=== PATIENT | female | born 1990 | race American Indian/Alaskan Native ===

== ENCOUNTER 2018-08-23 16:11 | Emergency (ER) | payer MEDICAID ==
--- NOTE | 2018-08-23 15:54 | Emergency Department Report ---
Blank Doc - Documentation Documentation: 27 y/o female c/o tooth pain that started 2-3 day.
[2018-08-23] MEDS ORDERED: LACTATED RINGERS 500 ML IV ONE (16:13)
[2018-08-23 16:54] VITALS: BP 127/77
[2018-08-23 17:16] LABS: Bilirubin,Urine NEG (Negative); Blood,Urine NEG (Negative); Color,Urine Yellow (Yellow); Mucus,Urine FEW /HPF
[2018-08-23] MEDS ORDERED: TYLENOL PO PRN (17:32)
--- NOTE | 2018-08-23 19:19 | Emergency Department Report ---
ED ENT HPI - General Chief complaint: Dental/Oral Stated complaint: RT SIDE TOOTHACHE/PAIN Time Seen by Provider: 08/23/18 19:14 Source: patient Mode of arrival: Ambulatory Limitations: No Limitations - History of Present Illness Initial comments: 27 y/o female comes in for right upper tooth pain for 2 days. Patient denies any fever or chills. Patient was cleared from labor and delivery. MD complaint: tooth pain -: days(s) (2) Severity: severe Severity scale (0 -10): 8 Quality: aching Consistency: constant Improves with: none Worsens with: eating Associated Symptoms: toothache. denies: fever, cough - Related Data Previous Rx's Medication Instructions Recorded Last Taken Type Acetaminophen/Codeine 1 tab PO Q6H PRN #15 tab 03/12/14 Unknown Rx [Acetaminophen-Codeine #3 TAB] Acetaminophen 975 mg PO Q4-6H #24 capsule 08/23/18 Unknown Rx Amoxicillin [Trimox CAP] 500 mg PO Q8H #30 capsule 08/23/18 Unknown Rx Allergies Allergy/AdvReac Type Severity Reaction Status Date / Time No Known Allergies Allergy Verified 08/23/18 16:16 ED Dental HPI - General Chief complaint: Dental/Oral Stated complaint: RT SIDE TOOTHACHE/PAIN Time Seen by Provider: 08/23/18 19:14 Source: patient Mode of arrival: Ambulatory Limitations: No Limitations - Related Data Previous Rx's Medication Instructions Recorded Last Taken Type Acetaminophen/Codeine 1 tab PO Q6H PRN #15 tab 03/12/14 Unknown Rx [Acetaminophen-Codeine #3 TAB] Acetaminophen 975 mg PO Q4-6H #24 capsule 08/23/18 Unknown Rx Amoxicillin [Trimox CAP] 500 mg PO Q8H #30 capsule 08/23/18 Unknown Rx Allergies Allergy/AdvReac Type Severity Reaction Status Date / Time No Known Allergies Allergy Verified 08/23/18 16:16 ED Review of Systems ROS: Stated complaint: RT SIDE TOOTHACHE/PAIN Other details as noted in HPI ED Past Medical Hx - Surgical History Additional Surgical History: . keloids removed - Social History Smoking Status: Never Smoker Substance Use Type: None - Medications Home Medications: Home Medications Medication Instructions Recorded Confirmed Last Taken Type Acetaminophen/Codeine 1 tab PO Q6H PRN #15 tab 03/12/14 Unknown Rx [Acetaminophen-Codeine #3 TAB] Acetaminophen 975 mg PO Q4-6H #24 capsule 08/23/18 Unknown Rx Amoxicillin [Trimox CAP] 500 mg PO Q8H #30 capsule 08/23/18 Unknown Rx ED Physical Exam - General Limitations: No Limitations General appearance: alert, in no apparent distress - Head Head exam: Present: atraumatic, normocephalic - Eye Eye exam: Present: normal appearance - Expanded ENT Exam Expanded Teeth exam: Present: dental tenderness # (12), gingival enlargement - Neck Neck exam: Present: normal inspection - Respiratory Respiratory exam: Present: normal lung sounds bilaterally. Absent: respiratory distress - Cardiovascular Cardiovascular Exam: Present: regular rate, normal rhythm. Absent: systolic murmur, diastolic murmur, rubs, gallop - Extremities Exam Extremities exam: Present: full ROM - Back Exam Back exam: Present: normal inspection, full ROM - Neurological Exam Neurological exam: Present: alert, oriented X3 - Psychiatric Psychiatric exam: Present: normal affect, normal mood - Skin Skin exam: Present: warm, dry, intact, normal color. Absent: rash ED Course Vital Signs 08/23/18 08/23/18 08/23/18 15:41 16:51 16:53 Temperature 98.4 F Pulse Rate 88 79 82 Respiratory 20 Rate Blood Pressure 116/59 127/77 Blood Pressure [Right] O2 Sat by Pulse 99 100 Oximetry 08/23/18 08/23/18 08/23/18 16:56 17:01 17:02 Temperature 97.7 F Pulse Rate 77 87 85 Respiratory 20 Rate Blood Pressure Blood Pressure 127/77 [Right] O2 Sat by Pulse 100 100 100 Oximetry 08/23/18 08/23/18 08/23/18 17:06 17:11 17:16 Temperature Pulse Rate 83 100 H 92 H Respiratory Rate Blood Pressure Blood Pressure [Right] O2 Sat by Pulse 100 100 100 Oximetry 08/23/18 08/23/18 08/23/18 17:21 17:26 17:31 Temperature Pulse Rate 89 91 H 99 H Respiratory Rate Blood Pressure Blood Pressure [Right] O2 Sat by Pulse 100 100 100 Oximetry 08/23/18 08/23/18 08/23/18 17:40 17:45 18:18 Temperature Pulse Rate 100 H 78 91 H Respiratory Rate Blood Pressure Blood Pressure [Right] O2 Sat by Pulse 99 100 83 L Oximetry ED Medical Decision Making - Medical Decision Making 27-year-old -Chinese female that was 37 weeks comes in for right upper quadrant today. Patient also reported she was having abdominal contractions and went to labor and delivery to be clear. Patient will be placed on antibiotics and Tylenol for pain management and possible dental abscess. Discussed the patient to follow up with her [employer] provider and dentist. Patient verbalized understanding Critical care attestation.: If time is entered above; I have spent that time in minutes in the direct care of this critically ill patient, excluding procedure time. ED Disposition Clinical Impression: Pain, dental Disposition: DC-01 TO HOME OR SELFCARE Is pt being admited?: No Condition: Stable Instructions: Labor and Delivery General Instructions, Labor/ Labor Instructions, Labor (DC), Dental Abscess (GEN), Vaginal Delivery (DC) Additional Instructions: Take medications as prescribed and follow up with a dentist. Prescriptions: Acetaminophen 975 mg PO Q4-6H #24 capsule Amoxicillin [Trimox CAP] 500 mg PO Q8H #30 capsule Referrals: RK ORTIZ MD [Primary Care Provider] - 7 Days [facility] [Outside] - 3-5 Days [facility] [Outside] - 3-5 Days Forms: [facility] Discharge Summary
== END 2018-08-23 19:25 | disposition home or self-care (01) ==
LOC: TRG 16:11 → ED 16:11 → TRG 16:13 → EDSTATUS 19:12 → ED 19:25
DX: O99.613 Diseases of the digestive system complicating pregnancy, third trimester (principal); K08.89 Other specified disorders of teeth and supporting structures; Z3A.34 34 weeks gestation of pregnancy
CPT/HCPCS: 59025; 81001; 99283; J7120; 96360; 96361

== ENCOUNTER 2018-09-18 20:48 | Inpatient (IN) | payer MEDICAID ==
[2018-09-18] MEDS ORDERED: LACTATED RINGERS 1,000 ML IV ONE (22:28)
[2018-09-18] MEDS ORDERED: LACTATED RINGERS 1,000 ML IV SCH (23:45)
[2018-09-18] MEDS ORDERED: PITOCin/NS 20 UNIT/1000ML DRIP 20 UNITS/1,000 ML BAG IV SCH (23:45)
[2018-09-18] MEDS ORDERED: REGLAN IV ONE (23:53)
[2018-09-18] MEDS ORDERED: PEPCID IV ONE (23:53)
[2018-09-18] MEDS ORDERED: BICITRA PO ONE (23:53)
[2018-09-18] MEDS ORDERED: ANCEF/STERILE WATER 2 GM/20 ML 2 GM/20 ML SYRINGE IV NR (23:55)
[2018-09-19 00:29] LABS: Basophils % (Auto) 0.4 % (0.0-1.8); Eosinophils # (Auto) 0.1 K/mm3 (0.0-0.4); Eosinophils % (Auto) 1.2 % (0.0-4.3); Hematocrit 30.2 % (30.3-42.9); Hemoglobin 10.3 gm/dl (10.1-14.3); Lymphocytes # (Auto) 2.1 K/mm3 (1.2-5.4); Mean Corpuscular HGB Conc 34 % (30-34); Mean Corpuscular Volume 86 fl (79-97); Monocytes # (Auto) 0.8 K/mm3 (0.0-0.8); Monocytes % (Auto) 7.9 % (0.0-7.3); Platelet Count 220 K/mm3 (140-440); Red Blood Count 3.52 M/mm3 (3.65-5.03); Red Cell Distribution Width 14.2 % (13.2-15.2)
[2018-09-19] MEDS ORDERED: ZOFRAN ONE ×2 (00:55→03:38)
--- NOTE | 2018-09-19 01:15 | History and Physical Report ---
History of Present Illness Date of examination: 09/19/18 Date of admission: 09/19/18 00:16 Chief complaint: Labor History of present illness: Pt is a 28yo BF EDC 10/01/18; EGA 38 2/7 weeks presents to L&D complaining of RUC's. She received care at [facility] and scheduled for a Repeat C Section 09/26/18. However records are not available and GBS is unknown. She is currently in labor, so will proceed with a Repeat C Section now. Past History Past Medical History: no pertinent history Past Surgical History: section Social history: no significant social history, single - Obstetrical History Expected Date of Delivery: 10/01/18 Actual Gestation: 38 Week(s) 4 Day(s) : 3 Medications and Allergies Allergies Allergy/AdvReac Type Severity Reaction Status Date / Time No Known Allergies Allergy Verified 09/18/18 22:20 Home Medications Medication Instructions Recorded Confirmed Last Taken Type valACYclovir [Valtrex] 1 tab PO DAILY 09/18/18 09/18/18 09/18/18 History Active Meds: Active Medications Oxytocin/Sodium Chloride (Pitocin/Ns 20 Unit/1000ml Drip) 20 units in 1,000 mls @ 0 mls/hr IV TITR MELBA Lactated Ringer's (Lactated Ringers) 1,000 mls @ 2,250 mls/hr IV PREOP MELBA Stop: 09/20/18 00:12 Review of Systems All systems: negative - Vital Signs Vital signs: Vital Signs Temp 98.0 F 09/18/18 22:12 Temp Pulse Resp BP Pulse Ox 97.8 F 70 20 132/64 09/19/18 00:36 09/19/18 00:43 09/19/18 00:36 09/19/18 00:43 - Physical Exam Breasts: Positive: deferred Cardiovascular: Regular rate Lungs: Positive: Clear to auscultation Abdomen: Positive: normal appearance Genitourinary (Female): Positive: normal external genitalia Vagina: Positive: normal moisture Uterus: Positive: enlarged Extremities: Positive: normal - Obstetrical FHR: category 1 Uterine Contraction Monitor Mode: External Results Result Diagrams: 09/19/18 14:13 Abnormal lab results 09/18/18 Range/Units 23:50 RBC 3.52 L (3.65-5.03) M/mm3 Hct 30.2 L (30.3-42.9) % [place] % (Auto) 7.9 H (0.0-7.3) % All other labs normal. Assessment and Plan - Patient Problems (1) 38 weeks gestation of Onset Date: 09/19/18 Current Visit: Yes Status: Resolved Plan to address problem: A: IUP @ 38 2/7 weeks in labor Previous C Section GBS unknown P: Admit to L&D for Repeat C Section (2) Previous delivery affecting Onset Date: 09/19/18 Current Visit: Yes Status: Resolved
[2018-09-19] MEDS ORDERED: DILAUDID ONE ×2 (01:51→03:40)
[2018-09-19] MEDS ORDERED: TORADOL ONE ×2 (01:52→03:38)
[2018-09-19] MEDS ORDERED: SUBLIMAZE ONE ×2 (01:52→03:01)
[2018-09-19] MEDS ORDERED: BENADRYL ONE ×2 (01:52→03:38)
[2018-09-19] MEDS ORDERED: TYLENOL PO PRN (02:07)
[2018-09-19] MEDS ORDERED: LANSINOH TP PRN (02:07)
[2018-09-19] MEDS ORDERED: NARCAN 0.4 MG/1 ML IV PRN ×2 (02:07→02:18)
[2018-09-19] MEDS ORDERED: TUCKS PAD TP PRN (02:07)
[2018-09-19] MEDS ORDERED: SENOKOT PO PRN (02:07)
[2018-09-19] MEDS ORDERED: MYLICON PO PRN (02:07)
[2018-09-19] MEDS ORDERED: ZOFRAN IV PRN ×2 (02:07→02:18)
[2018-09-19] MEDS ORDERED: TORADOL IV PRN (02:07)
--- NOTE | 2018-09-19 02:15 | Operative Report ---
Operative Report Operative Report: Date of procedure: 09/19/2018 Pre-operative diagnosis: 1. Intrauterine at 38-2/7 weeks in labor 2. Previous Post-operative diagnosis: Same Procedure name(s): Repeat low transverse section Surgeon: Joseph Gomez MD Sheet Sorter: None Anesthesia: Spinal anesthesia EBL: 900 mls Findings: A 3270 g female infant Apgars 8 at 1 minute and 8 at 5 minutes. Clear amniotic fluid. Normal uterus. Normal tubes and ovaries bilaterally. Procedure: After the patient was prepped and draped in usual sterile fashion, and after satisfactory level of epidural anesthesia was obtained, the skin knife was used to make a transverse skin incision through the previous skin scar. The incision was excised down to layer of the fascia, which was nicked in the midline and extended laterally using the Bovie cautery. The rectus muscles were dissected off the rectus fascia both superiorly and inferiorly. The rectus bellies in the midline, and the peritoneum was entered under direct visualization. The peritoneal incision was extended superiorly and inferiorly. A bladder flap was created and the bladder blade was then placed. The uterus was scored in a curvilinear linear fashion, entered in the midline revealing clear amniotic fluid. The 's head was delivered onto the surgical field, and the oropharynx and nasopharynx were bulb suctioned. The rest of the infant's body was delivered, cord was doubly clamped and cut and the infant was handed to the waiting respiratory team. Cord blood was then obtained. The placenta was manually removed from the uterus, and the uterus removed from its normal anatomical position. After gentle uterine lavage, the incision was inspected and found to be without extensions. It was then closed in 2 layers using 0 Vicryl suture in a running interlocking fashion, the second layer imbricating the first. After good hemostasis was achieved, copious amounts or irrigation was performed, and the gutters were suctioned free of blood and blood clots. The Tisseel sealant was sprayed across the uterine incision. The uterus was then returned to its normal anatomical position, and after excellent hemostasis assured, the peritoneum was re-approximated using 3-0 Vicryl suture in a running interlocking fashion, and then the rectus muscles were re- approximated using 3-0 Vicryl suture in a [id number] configuration. The fascia was then re-approximated using 0 Vicryl suture in running interlocking fashion. The subcutaneous layer was made hemostatic using Bovie cautery, the Tisseel sealant was sprayed across the fascial incision and the skin edges re- approximated using 4-0 Vicryl suture in a sub-cuticular fashion. Patient tolerated the procedure well was transported to recovery in stable condition.
--- NOTE | 2018-09-19 02:17 | Anesthesia Consultation ---
Anesthesia Consult and Med Hx Date of service: 09/19/18 - Airway Anesthetic Teeth Evaluation: Good ROM Head & Neck: Adequate Mental/Hyoid Distance: Adequate Mallampati Class: Class II Intubation Access Assessment: Good - Pulmonary Exam CTA: Yes - Cardiac Exam Cardiac Exam: RRR - Pre-Operative Health Status ASA Pre-Surgery Classification: ASA2 Proposed Anesthetic Plan: Epidural - Pulmonary Hx Asthma: No COPD: No Hx Pneumonia: No - Cardiovascular System Hx Hypertension: No - Central Nervous System Hx Seizures: No Hx Psychiatric Problems: No - Endocrine Hx Renal Disease: No Hx End Stage Renal Disease: No Hx Hypothyroidism: No Hx Hyperthyroidism: No - Hematic Hx Anemia: No Hx Sickle Cell Disease: No - Other Systems Hx Alcohol Use: No
--- NOTE | 2018-09-19 02:17 | Anesthesia Day of Surgery ---
Anesthesia Day of Surgery - Day of Surgery Patient Examined: Yes Patient H&P Reviewed: Yes Patient is NPO: Yes
[2018-09-19] MEDS ORDERED: DILAUDID IV PRN (02:18)
[2018-09-19] MEDS ORDERED: PHENERGAN PR PRN (02:18)
[2018-09-19] MEDS ORDERED: PHENERGAN PO PRN (02:18)
--- NOTE | 2018-09-19 02:18 | Post Anesthesia Evaluation ---
- Post Anesthesia Evaluation Patient Participated: Yes Airway Patent: Yes Stable Respiratory Function: Yes Nausea/Vomiting: No Temp > 96.8F: Yes Pain Manageable: Yes Adequeate Hydration: Yes Anesthesia Complications: No Block Receding Appropriately: Yes
[2018-09-19] MEDS: MORPHINE IV PRN ×2 (02:53→03:09)
[2018-09-19] MEDS ORDERED: PITOCin/NS 20 UNIT/1000ML DRIP 20 UNITS/1,000 ML BAG IV SCH (03:00)
[2018-09-19] MEDS ORDERED: D5LR 1,000 ML IV SCH (03:00)
[2018-09-19] MEDS ORDERED: SODIUM CHLORIDE FLUSH SYRINGE 10 ML IV PRN ×2 (03:00)
[2018-09-19] MEDS ORDERED: QUELICIN ONE (03:38)
[2018-09-19] MEDS ORDERED: XYLOCAINE MPF 2% ONE (03:38)
[2018-09-19] MEDS ORDERED: DIPRIVAN 10 MG/ML IV ONE (03:39)
[2018-09-19] MEDS: PERCOCET 5/325 PO PRN ×3 (08:02→20:40)
[2018-09-19] MEDS: ANCEF/NS 1 GM/50 ML 1 GM/50 ML BAG IV SCH ×2 (08:03→15:53)
[2018-09-19] MEDS: PRENATAL VITAMIN PO SCH (10:21)
[2018-09-19] MEDS: FEOSOL PO SCH (10:21)
[2018-09-19 14:32] LABS: Hematocrit 26.1 % (30.3-42.9); Hemoglobin 8.7 gm/dl (10.1-14.3)
[2018-09-19] MEDS: IBUPROFEN PO PRN ×2 (15:14→21:40)
[2018-09-19] MEDS: MILK OF MAGNESIA PO PRN (15:56)
[2018-09-20] MEDS ORDERED: M-M-R II VACCINE SUB-Q ONE (02:09)
[2018-09-20] MEDS: PERCOCET 5/325 PO PRN ×3 (03:46→22:57)
[2018-09-20] MEDS: IBUPROFEN PO PRN ×5 (04:45→22:57)
[2018-09-20] MEDS ORDERED: BOOSTRIX IM ONE (06:00)
[2018-09-20] MEDS: PRENATAL VITAMIN PO SCH (10:47)
[2018-09-20] MEDS: FEOSOL PO SCH (10:47)
--- NOTE | 2018-09-20 11:45 | Progress Note ---
Assessment and Plan - Patient Problems (1) 38 weeks gestation of Onset Date: 09/19/18 Current Visit: Yes Status: Resolved (2) Previous delivery affecting Onset Date: 09/19/18 Current Visit: Yes Status: Resolved (3) Status post Onset Date: 09/20/18 Current Visit: Yes Status: Resolved Plan to address problem: A: S/P C Section - POD #1 Doing well Asymptomatic anemia - stable P: Continue RPOC Anticipate discharge in 24-48hrs Subjective - Subjective Date of service: 09/20/18 Principal diagnosis: s/p C Section - POD #1 Interval history: Pt is feeling well without complaints. Bleeding improved. Patient reports: appetite normal, voiding normally, pain well controlled, flatus, ambulating normally, no dizzy ambulation, no nauseated [place]: doing well, bottle feeding Objective - Vital Signs Latest vital signs: Vital Signs Temp Pulse Resp BP BP Pulse Ox 09/20/18 07:39 97.6 F 75 18 119/65 100 09/20/18 04:45 18 09/19/18 23:54 97.5 F L 86 20 119/63 99 09/19/18 21:40 18 09/19/18 20:57 98.0 F 84 20 117/71 100 09/19/18 20:40 18 09/19/18 16:24 98.2 F 82 18 120/59 100 Intake and Output 09/19/18 09/20/18 09/20/18 22:59 06:59 14:59 Output Total 200 Balance -200 Output: Urine 200 Void 200 Other: Total, Output Amount 200 # Voids Void 1 - Exam Breasts: Present: deferred Abdomen: Present: normal appearance, soft Uterus: Present: normal, firm, fundal height below umbilicus Extremities: Present: normal Incision: Present: normal, dry, intact - Labs Labs: Abnormal lab results 09/19/18 Range/Units 14:13 Hgb 8.7 L (10.1-14.3) gm/dl Hct 26.1 L (30.3-42.9) % Laboratory Tests 09/18/18 09/18/18 09/19/18 23:50 23:50 14:13 WBC 9.9 RBC 3.52 L Hgb 10.3 8.7 L Hct 30.2 L 26.1 L MCV 86 MCH 29 MCHC 34 RDW 14.2 Plt Count 220 Lymph % (Auto) 21.0 [place] % (Auto) 7.9 H Eos % (Auto) 1.2 Baso % (Auto) 0.4 Lymph # 2.1 [place] # 0.8 Eos # 0.1 Baso # 0.0 Seg Neutrophils % 69.5 Seg Neutrophils # 6.9 Blood Type O POSITIVE Antibody Screen TNR [place] Antibody Screen Negative
[2018-09-20] MEDS: NORCO 5/325 PO PRN ×2 (16:26→16:31)
[2018-09-20] MEDS: MILK OF MAGNESIA PO PRN (22:57)
[2018-09-21] MEDS: PERCOCET 5/325 PO PRN ×2 (05:17→11:10)
[2018-09-21] MEDS: IBUPROFEN PO PRN ×2 (05:17→11:10)
[2018-09-21] MEDS: PRENATAL VITAMIN PO SCH (10:13)
[2018-09-21] MEDS: FEOSOL PO SCH (10:13)
--- NOTE | 2018-09-21 11:35 | Progress Note ---
Assessment and Plan - Patient Problems (1) 38 weeks gestation of Onset Date: 09/19/18 Current Visit: Yes Status: Resolved (2) Previous delivery affecting Onset Date: 09/19/18 Current Visit: Yes Status: Resolved (3) Status post Onset Date: 09/20/18 Current Visit: Yes Status: Resolved Plan to address problem: A: S/P C Section - POD #2 Doing well Asymptomatic anemia - stable P: May go home today. Subjective - Subjective Date of service: 09/21/18 Principal diagnosis: s/p C Section - POD #2 Interval history: Pt is feeling well without complaints. She is tolerating a reg diet without nausea or vomiting, ambulating and voiding without difficulty. She requests to go home today. Patient reports: appetite normal, voiding normally, pain well controlled, flatus, ambulating normally, no dizzy ambulation, no nauseated [place]: doing well, bottle feeding Objective - Vital Signs Latest vital signs: Vital Signs Temp Pulse Resp BP Pulse Ox 09/21/18 08:11 97.7 F 93 H 20 117/61 100 09/21/18 01:12 98.2 F 86 20 114/53 100 09/20/18 17:44 98.8 F 92 H 18 107/58 100 Intake and Output 09/20/18 09/21/18 09/21/18 22:59 06:59 14:59 Intake Total 1080 Balance 1080 Intake: Oral 360 Intake, Free Water 720 Other: Total, Intake Amount 360 # Voids Void 3 - Exam Breasts: Present: deferred Abdomen: Present: normal appearance, soft Uterus: Present: normal, firm, fundal height below umbilicus Extremities: Present: normal Incision: Present: normal, dry, intact
--- NOTE | 2018-09-21 11:37 | Discharge Summary ---
Providers - Providers Date of Admission: 09/19/18 00:16 Date of discharge: 09/21/18 Attending physician: RK ORTIZ Primary care physician: RK ORTIZ Hospitalization Reason for admission: active labor, IUP at term, other (Previous C Section) Delivery: Procedure: section, repeat low transverse Laceration: none Incision: normal Other procedures: none complications: none Discharge diagnosis: IUP at term delivered [place] baby: female Hospital course: Pt is a 28yo BF EDC 10/01/18; EGA 38 2/7 weeks who presented to L&D complaining of RUC's. She received care at [facility] and was scheduled for a Repeat C Section 09/26/18. However she was in labor, so an uncomplicated Repeat C Section was performed. She tolerated the procedure well. By POD #2 she was tolerating a reg diet without nausea or vomiting, ambulating and voiding without difficulty. She was therefore discharged to home on POD #2 in stable condition. Condition at discharge: Good Disposition: DC-01 TO HOME OR SELFCARE - Discharge Diagnoses (1) 38 weeks gestation of Status: Resolved (2) Previous delivery affecting Status: Resolved (3) Status post Status: Resolved Plan - Discharge Medications Prescriptions: Ferrous Sulfate [Feosol 325 MG tab] 325 mg PO BID #60 tablet Ibuprofen [Motrin 800 MG tab] 800 mg PO Q6H PRN #30 tablet PRN Reason: Pain, Mild (1-3) oxyCODONE /ACETAMINOPHEN [Percocet 5/325 mg] 1 tab PO Q6H PRN #30 tablet PRN Reason: Pain, Moderate (4-6) Vit-Fe Fumar-FA [ Vitamin] 1 each PO QDAY #30 tablet - Provider Discharge Summary Activity: routine, no sex for 6 weeks, no heavy lifting 4 weeks, no strenuous exercise Diet: routine Instructions: routine Additional instructions: [] Smoking cessation referral if applicable(refer to patient education folder for contact #) [] Refer to [facility]'s [facility] Booklet Call your doctor immediately for: * Fever > 100.5 * Heavy vaginal bleeding ( >1 pad per hour) * Severe persistent headache * Shortness of breath * Reddened, hot, painful area to leg or breast * Drainage or odor from incision. * Keep incision clean and dry at all times and follow doctor's instructions regarding bathing/showering - Follow up plan Follow up: RK ORTIZ MD [Primary Care Provider] - 14 Days DINO MATA NP [Referring] - 14 Days Forms: [facility] Discharge Summary, Discharge Signature Page
[2018-09-21 15:13] VITALS: BP 131/82
== END 2018-09-21 13:55 | disposition home or self-care (01) | DRG 766 ==
LOC: TRG 20:48 → APU 09-19 00:16 → TRG 09-19 00:16 → OB 09-19 03:53
PROVIDERS: ADMIT Obstetrics & Gynecology; ATTEND Obstetrics & Gynecology
PROC: 10D00Z1 Extraction of Products of Conception, Low, Open Approach (ICD-10-PCS; principal; 2018-09-19)
PROC: 3E0234Z Introduction of Serum, Toxoid and Vaccine into Muscle, Percutaneous Approach (ICD-10-PCS; 2018-09-20)
DX: O34.211 Maternal care for low transverse scar from previous cesarean delivery (principal); O99.02 Anemia complicating childbirth; D64.9 Anemia, unspecified; Z3A.38 38 weeks gestation of pregnancy; Z37.0 Single live birth; Z23 Encounter for immunization
CPT/HCPCS: 36415; 85014; 85018; 85025; 86850; 86900; 86901; G0378; C9250; J0330; J0690; J1170; J1200; J1885; J2270; J2405; J2590; J2704; J2765; J3010; J7120; J7121

== ENCOUNTER 2018-09-30 16:54 | Inpatient (IN) | payer MEDICAID ==
[2018-09-30 18:03] LABS: Basophils % (Auto) 0.6 % (0.0-1.8); Eosinophils # (Auto) 0.2 K/mm3 (0.0-0.4); Eosinophils % (Auto) 3.5 % (0.0-4.3); Hematocrit 30.6 % (30.3-42.9); Lymphocytes # (Auto) 1.8 K/mm3 (1.2-5.4); Lymphocytes % (Auto) 28.5 % (13.4-35.0); Mean Corpuscular HGB Conc 33 % (30-34); Mean Corpuscular Volume 87 fl (79-97); Monocytes # (Auto) 0.4 K/mm3 (0.0-0.8); Monocytes % (Auto) 6.6 % (0.0-7.3); Platelet Count 414 K/mm3 (140-440); Red Blood Count 3.52 M/mm3 (3.65-5.03); Red Cell Distribution Width 15.9 % (13.2-15.2)
[2018-09-30 18:12] LABS: Alanine Aminotransferase 24 units/L (7-56); Albumin 3.4 g/dL (3.9-5); BUN/Creatinine Ratio 16; Blood Urea Nitrogen 14 mg/dL (7-17); Calcium 8.8 mg/dL (8.4-10.2); Hemolysis Index 0
[2018-09-30 18:13] LABS: INR 1.04 (0.87-1.13)
[2018-09-30 18:14] LABS: Partial Thromboplastin Time 28.6 Sec. (24.2-36.6)
[2018-09-30] MEDS ORDERED: MAGNESIUM SULFATE 4GM/100ML 4 GM/100 ML BAG IV ONE (21:21)
[2018-09-30] MEDS ORDERED: APRESOLINE IV ONE (21:22)
[2018-09-30] MEDS ORDERED: MAGNESIUM SULFATE 2GM/50ML 2 GM/50 ML BAG IV ONE (21:29)
[2018-09-30] MEDS ORDERED: SUBLIMAZE ONE (21:33)
[2018-09-30] MEDS ORDERED: ZOFRAN ONE (21:34)
--- NOTE | 2018-09-30 21:46 | Emergency Department Report ---
HPI - General Chief Complaint: High BP Time Seen by Provider: 09/30/18 21:21 - HPI HPI: Room 24 The patient is a 28-year-old female presenting with a chief complaint of headache and blurred vision. Patient is approximately 11 days and states over the past 2-3 days she developed a headache and blurred vision. Patient states she's had bilateral lower extremity edema during her . The patient went to see her CASTING MACHINE OPERATOR AUTOMATIC today at [facility] and was sent to the ED for further management at their she was found to have both an area, hypertension and peripheral edema. Patient gives her headache is score 7-8/10. The patient states she is not breast-feeding Location: [See above] Duration: [See above] Quality: [See above] Severity: [See above] Modifying factors: [see above] Context: [see above] Mode of transportation: [not driving] ED Past Medical Hx - Surgical History Additional Surgical History: . keloids removed - Family History Family history: no significant - Social History Smoking Status: Current Every Day Smoker (1/7 pack per day) Substance Use Type: None (denies illicit drug use), Alcohol (occasional) - Medications Home Medications: Home Medications Medication Instructions Recorded Confirmed Last Taken Type valACYclovir [Valtrex] 1 tab PO DAILY 09/18/18 09/18/18 09/18/18 History Ferrous Sulfate [Feosol 325 MG tab] 325 mg PO BID #60 tablet 09/21/18 Unknown Rx Ibuprofen [Motrin 800 MG tab] 800 mg PO Q6H PRN #30 tablet 09/21/18 Unknown Rx Vit-Fe Fumar-FA [ 1 each PO QDAY #30 tablet 09/21/18 Unknown Rx Vitamin] oxyCODONE /ACETAMINOPHEN [Percocet 1 tab PO Q6H PRN #30 tablet 09/21/18 Unknown Rx 5/325 mg] ED Review of Systems ROS: Stated complaint: HIGH BP/LEGS/FEET SWOLLEN/BLURRED VISION Other details as noted in HPI Constitutional: no symptoms reported Eyes: vision change ENT: denies: throat pain Respiratory: no symptoms reported Cardiovascular: denies: chest pain Endocrine: no symptoms reported Gastrointestinal: denies: abdominal pain Genitourinary: denies: dysuria Musculoskeletal: denies: back pain Neurological: headache Hematological/Lymphatic: other (peripheral edema) Physical Exam - Physical Exam Vital Signs: Vital Signs 09/30/18 09/30/18 09/30/18 17:08 20:05 20:58 Temperature 98 F 98.8 F 97.9 F Pulse Rate 83 74 54 L Respiratory 18 18 23 Rate Blood Pressure 158/91 178/64 Blood Pressure 178/90 [Right] O2 Sat by Pulse 99 100 99 Oximetry 09/30/18 21:40 Temperature Pulse Rate 82 Respiratory Rate Blood Pressure 179/91 Blood Pressure [Right] O2 Sat by Pulse Oximetry Physical Exam: GENERAL: The patient is well-developed well-nourished female lying on stretcher not appearing to be in acute distress. [] HEENT: Normocephalic. Atraumatic. Extraocular motions are intact. Patient has moist mucous membranes. NECK: Supple. No meningitic signs are noted. Trachea midline CHEST/LUNGS: Clear to auscultation. There is no respiratory distress noted. HEART/CARDIOVASCULAR: Regular. There is no tachycardia. There is no gallop rub or murmur. ABDOMEN: Patient has normal bowel sounds. There is no abdominal distention. SKIN: There is no rash. There is 1-2+ bilateral lower extremity pitting edema. There is no diaphoresis. NEURO: The patient is awake, alert, and oriented. The patient is cooperative. The patient has no focal neurologic deficits. The patient has normal speech. Cranial nerves II through XII grossly intact, no drift MUSCULOSKELETAL: There is no evidence of acute injury. ED Course Vital Signs 09/30/18 09/30/18 09/30/18 17:08 20:05 20:58 Temperature 98 F 98.8 F 97.9 F Pulse Rate 83 74 54 L Respiratory 18 18 23 Rate Blood Pressure 158/91 178/64 Blood Pressure 178/90 [Right] O2 Sat by Pulse 99 100 99 Oximetry 09/30/18 21:40 Temperature Pulse Rate 82 Respiratory Rate Blood Pressure 179/91 Blood Pressure [Right] O2 Sat by Pulse Oximetry - Consultations Consultation #1: 09/30/18 22:41 CASTING MACHINE OPERATOR AUTOMATIC paged ED Medical Decision Making - Lab Data Result diagrams: 09/30/18 17:21 09/30/18 17:21 - Radiology Data Radiology results: report reviewed (CT head), image reviewed (CT head) [facility] [address] [place] [address] Cat Scan Report Signed Patient: ANDRADE FALLON MR# : [id number] : 1990 Acct:[id number] Age/Sex: 28 / F ADM Date: 09/30/18 Loc: ED Attending Dr: Ordering Physician: BE BOSE MD Date of Service: 09/30/18 Procedure(s): CT head/brain wo con Accession Number(s): [id number] cc: BE BOSE MD PROCEDURE: CT HEAD/BRAIN WO CON TECHNIQUE: Computerized tomography of the head was performed without contrast material. CT DOSE LENGTH PRODUCT: 920.5 mGycm HISTORY: hypertension, headache COMPARISONS: None . FINDINGS: There is no evidence of an acute intracranial process, intracranial hemorrhage or mass effect. The ventricles are normal size. The visualized portions of the orbits, paranasal and mastoid sinuses are notable for mild to moderate paranasal sinus mucosal thickening with an air-fluid level in the visualized portion of the right maxillary sinus. There is prominence of the lacrimal glands bilaterally of unclear etiology. IMPRESSION: 1. No evidence of an acute intracranial process, intracranial hemorrhage or mass effect. If there is a clinical suspicion of an acute intracranial process, MRI brain may be helpful. 2. Paranasal sinus disease with air-fluid level right maxillary sinus which may represent changes of acute sinusitis. 3. Prominence of the lacrimal glands bilaterally of unclear etiology. Correlation with clinical history and physical exam will be helpful.. This document is electronically signed by Loren Schmid MD., September 30 2018 10:25:00 PM ET Transcribed By: ED Dictated By: LOREN SCHMID MD Electronically Authenticated By: LOREN SCHMID MD Signed Date/Time: 09/30/182226 DD/ 14 TD/TT: 09/30/182214 - Differential Diagnosis preeclampsia Critical care attestation.: If time is entered above; I have spent that time in minutes in the direct care of this critically ill patient, excluding procedure time. ED Disposition Clinical Impression: Preeclampsia Disposition: OP ADMIT IP TO THIS HOSP Is pt being admited?: Yes Condition: Fair Instructions: Hypertension (ED) Referrals: DINO MATA NP [Primary Care Provider] - 3-5 Days
--- NOTE | 2018-09-30 22:27 | Cat Scan Report ---
PROCEDURE: CT HEAD/BRAIN WO CON TECHNIQUE: Computerized tomography of the head was performed without contrast material. CT DOSE LENGTH PRODUCT: 920.5 mGycm HISTORY: hypertension, headache COMPARISONS: None . FINDINGS: There is no evidence of an acute intracranial process, intracranial hemorrhage or mass effect. The ventricles are normal size. The visualized portions of the orbits, paranasal and mastoid sinuses are notable for mild to moderate paranasal sinus mucosal thickening with an air-fluid level in the visualized portion of the right ma xillary sinus. There is prominence of the lacrimal glands bilaterally of unclear etiology. IMPRESSION: 1. No evidence of an acute intracranial process, intracranial hemorrhage or mass effect. If there is a clinical suspicion of an acute intracranial process, MRI brain may be helpful. 2. Paranasal sinus disease with air-fluid level right maxillary sinus which may represent changes of acute sinusitis. 3. Prominence of the lacrimal glands bilaterally of unclear etiology. Correlation with clinical histo ry and physical exam will be helpful.. This document is electronically signed by Loren Schmid MD., September 30 2018 10:25:00 PM ET
[2018-09-30] MEDS ORDERED: ZOFRAN IV ONE (22:58)
[2018-09-30] MEDS ORDERED: SUBLIMAZE IV ONE (22:58)
[2018-09-30 23:40] LABS: Bilirubin,Urine NEG (Negative); Blood,Urine SM (Negative); Color,Urine Amber (Yellow); Mucus,Urine 3+ /HPF; Urobilinogen,Urine < 2.0 mg/dL (<2.0)
[2018-10-01] MEDS: LACTATED RINGERS 1,000 ML IV SCH ×2 (00:57→13:14)
[2018-10-01] MEDS ORDERED: MAGNESIUM SULFATE 40GM/1000ML 40 GM/1,000 ML BAG IV SCH (01:00)
[2018-10-01] MEDS: PERCOCET 5/325 PO PRN ×2 (01:06→14:38)
[2018-10-01] MEDS: COLACE PO SCH (08:49)
[2018-10-01] MEDS ORDERED: BENADRYL PO PRN (08:49)
[2018-10-01] MEDS ORDERED: COLACE PO PRN (08:49)
[2018-10-01] MEDS ORDERED: MILK OF MAGNESIA PO PRN (08:49)
--- NOTE | 2018-10-01 08:49 | Short Stay Summary ---
Short Stay Documentation Date of service: 10/01/18 Narrative H&P: The patient is a 28-year-old BF s/p Repeat C Section 09/19/18 presented to [facility] ER with a chief complaint of headache and blurred vision. She states over the past 2-3 days she developed a headache and blurred vision, and worsening bilateral lower extremity edema. The patient went to see her OPERATIONS LABEL CLERK today at [facility] and was sent to the ED for further management. Her headache score was 7-8/10. She is not breast-feeding. - History Principal diagnosis: preeclampsia H&P: obtained from office Past Medical History: No medical history Past Surgical History: Social history: no significant social history, single - Allergies and Medications Current Medications: Allergies No Known Allergies Allergy (Verified 09/18/18 22:20) Home Medications Medication Instructions Recorded Confirmed Last Taken Type valACYclovir [Valtrex] 1 tab PO DAILY 09/18/18 09/18/18 09/18/18 History Ferrous Sulfate [Feosol 325 MG tab] 325 mg PO BID #60 tablet 09/21/18 Unknown Rx Ibuprofen [Motrin 800 MG tab] 800 mg PO Q6H PRN #30 tablet 09/21/18 Unknown Rx Vit-Fe Fumar-FA [ 1 each PO QDAY #30 tablet 09/21/18 Unknown Rx Vitamin] oxyCODONE /ACETAMINOPHEN [Percocet 1 tab PO Q6H PRN #30 tablet 09/21/18 Unknown Rx 5/325 mg] Active Medications Docusate Sodium (Colace) 100 mg PO BID MELBA Lactated Ringer's (Lactated Ringers) 1,000 mls @ 75 mls/hr IV DIRECT MELBA Last Admin: 10/01/18 00:57 Dose: 75 mls/hr Documented by: Magnesium Sulfate (Magnesium Sulfate 40gm/1000ml) 40 gm in 1,000 mls @ 25 mls/hr IV DIRECT MELBA Last Admin: 10/01/18 00:57 Dose: 1 gm/hr, 25 mls/hr Documented by: Oxycodone/Acetaminophen (Percocet 5/325) 2 tab PO Q6H PRN PRN Reason: Pain, Moderate (4-6) Last Admin: 10/01/18 01:06 Dose: 2 tab Documented by: - Physical exam General appearance: mild distress Integumentary: no rash HEENT: Atraumatic Lungs: Clear to auscultation Breasts: deferred Heart: Regular rate Gastrointestinal: normal Female Genitourinary: deferred Rectal Exam: deferred Extremities: no No edema (2+ edema) Neurological: Normal gait, Normal speech, Cranial nerves 3-12 NL - Hospital course Hospital course: Ms Aldana was admitted and begun on IV Magnesium sulfate x 24hrs followed by PO Labetolol for BP control. She is currently on Labetolol 200mg BID and BP's ranging 127-176/67-76. She denies headaches or blurred vision. She is feeling much better, and ready to go home. - Disposition Condition at discharge: Good Disposition: DC-01 TO HOME OR SELFCARE - Discharge Diagnoses (1) Pre-eclampsia in period Status: Resolved Short Stay Discharge Plan Activity: no restrictions Diet: regular Wound: open to air, keep clean and dry Follow up with: DINO MATA NP [Primary Care Provider] - 3-5 Days RK ORTIZ MD [Staff Physician] - 7 Days Prescriptions: Labetalol [Labetalol 100mg TAB] 200 mg PO BID #60 tablet oxyCODONE /ACETAMINOPHEN [Percocet 5/325 mg] 1 tab PO Q6H PRN #20 tablet PRN Reason: Pain, Moderate (4-6)
[2018-10-01] MEDS: PRENATAL VITAMIN PO SCH (10:46)
[2018-10-01] MEDS: TYLENOL PO PRN (12:09)
[2018-10-01] MEDS: NORMODYNE PO SCH ×2 (14:39→23:40)
[2018-10-02] MEDS: TYLENOL PO PRN (01:12)
[2018-10-02] MEDS ORDERED: NORMODYNE PO ONE (01:15)
[2018-10-02] MEDS: PERCOCET 5/325 PO PRN ×2 (02:36→08:25)
[2018-10-02] MEDS: PRENATAL VITAMIN PO SCH (08:31)
[2018-10-02] MEDS: COLACE PO SCH (08:32)
[2018-10-02 12:41] VITALS: BP 146/78
== END 2018-10-02 14:00 | disposition home or self-care (01) | DRG 776 ==
LOC: ED 16:54 → OB 22:45 → LD 23:19 → OB 10-02 01:40
PROVIDERS: ADMIT Obstetrics & Gynecology; ATTEND Obstetrics & Gynecology
DX: O14.95 Unspecified pre-eclampsia, complicating the puerperium (principal); O99.335 Smoking (tobacco) complicating the puerperium; F17.210 Nicotine dependence, cigarettes, uncomplicated; O99.355 Diseases of the nervous system complicating the puerperium; R51 Headache
CPT/HCPCS: 36415; 70450; 80053; 81001; 83735; 85025; 85610; 85730; 87086; 96365; 96375; G0378; J0360; J2405; J3010; J3475; J7120

== ENCOUNTER 2021-04-04 15:13 | Emergency (ER) | payer MEDICAID ==
[2021-04-04] MEDS ORDERED: ACETAMINOPHEN W/CODEINE 300-30 MG TAB PO ONE (16:19)
--- NOTE | 2021-04-04 16:40 | Emergency Department Report ---
- General Chief Complaint: Upper Respiratory Infection Stated Complaint: Body aches Time Seen by Provider: 04/04/21 15:54 Source: patient Mode of arrival: Stretcher Limitations: No Limitations - History of Present Illness Initial Comments: Patient is a 30-year-old female presents emergency with complaints of "flulike symptoms" that began last night. She has associated generalized body aches, chills, fever, rhinorrhea, congestion, dry cough, diarrhea, ear pressure. She denies any sore throat, shortness of breath, chest pain, abdominal pain. She denies any known sick contacts or recent travel. She has not been vaccinated for COVID-19. No past medical history. No allergies to medications. - Related Data Home Medications Medication Instructions Recorded Confirmed Last Taken valACYclovir [Valtrex] 1 tab PO DAILY 09/18/18 10/02/18 09/18/18 Previous Rx's Medication Instructions Recorded Last Taken Type Ferrous Sulfate [Feosol 325 MG tab] 325 mg PO BID #60 tablet 09/21/18 Unknown Rx Ibuprofen [Motrin 800 MG tab] 800 mg PO Q6H PRN #30 tablet 09/21/18 09/30/18 Rx Vit-Fe Fumar-FA [ 1 each PO QDAY #30 tablet 09/21/18 09/30/18 Rx Vitamin] oxyCODONE /ACETAMINOPHEN [Percocet 1 tab PO Q6H PRN #30 tablet 09/21/18 09/27/18 Rx 5/325 mg] labetaloL [Labetalol 100mg TAB] 200 mg PO BID #60 tablet 10/02/18 Unknown Rx oxyCODONE /ACETAMINOPHEN [Percocet 1 tab PO Q6H PRN #20 tablet 10/02/18 Unknown Rx 5/325 mg] Acetaminophen [Tylenol] 650 mg PO Q8HR PRN #20 capsule 04/04/21 Unknown Rx Benzonatate [Tessalon Perles] 100 mg PO Q8HR PRN #10 capsule 04/04/21 Unknown Rx guaiFENesin ER [Mucinex ER] 600 mg PO Q12H #14 tablet.er 04/04/21 Unknown Rx Allergies Allergy/AdvReac Type Severity Reaction Status Date / Time No Known Allergies Allergy Verified 09/18/18 22:20 ED Review of Systems ROS: Stated complaint: Body aches Other details as noted in HPI Comment: All other systems reviewed and negative ED Past Medical Hx - Past Medical History Hx Hypertension: Yes Hx Congestive Heart Failure: No Hx Diabetes: No Hx Deep Vein Thrombosis: No Hx Renal Disease: No Hx Sickle Cell Disease: No Hx Seizures: No Hx Asthma: No Hx COPD: No Hx HIV: No - Surgical History Additional Surgical History: . keloids removed - Social History Smoking Status: Current Every Day Smoker - Medications Home Medications: Home Medications Medication Instructions Recorded Confirmed Last Taken Type valACYclovir [Valtrex] 1 tab PO DAILY 09/18/18 10/02/18 09/18/18 History Ferrous Sulfate [Feosol 325 MG tab] 325 mg PO BID #60 tablet 09/21/18 10/02/18 Unknown Rx Ibuprofen [Motrin 800 MG tab] 800 mg PO Q6H PRN #30 tablet 09/21/18 10/02/18 09/30/18 Rx Vit-Fe Fumar-FA [ 1 each PO QDAY #30 tablet 09/21/18 10/02/18 09/30/18 Rx Vitamin] oxyCODONE /ACETAMINOPHEN [Percocet 1 tab PO Q6H PRN #30 tablet 09/21/18 10/02/18 09/27/18 Rx 5/325 mg] labetaloL [Labetalol 100mg TAB] 200 mg PO BID #60 tablet 10/02/18 Unknown Rx oxyCODONE /ACETAMINOPHEN [Percocet 1 tab PO Q6H PRN #20 tablet 10/02/18 Unknown Rx 5/325 mg] Acetaminophen [Tylenol] 650 mg PO Q8HR PRN #20 capsule 04/04/21 Unknown Rx Benzonatate [Tessalon Perles] 100 mg PO Q8HR PRN #10 capsule 04/04/21 Unknown Rx guaiFENesin ER [Mucinex ER] 600 mg PO Q12H #14 tablet.er 04/04/21 Unknown Rx ED Physical Exam - General Limitations: No Limitations General appearance: alert, in no apparent distress - Head Head exam: Present: atraumatic, normocephalic - Eye Eye exam: Present: normal appearance - ENT ENT exam: Present: normal orophraynx, mucous membranes moist, TM's normal bilaterally, normal external ear exam - Respiratory Respiratory exam: Present: normal lung sounds bilaterally. Absent: respiratory distress, wheezes, rales, rhonchi, stridor, chest wall tenderness, accessory muscle use, decreased breath sounds, prolonged expiratory - Cardiovascular Cardiovascular Exam: Present: regular rate, normal rhythm, normal heart sounds. Absent: systolic murmur, diastolic murmur, rubs, gallop - Neurological Exam Neurological exam: Present: alert, oriented X3 - Psychiatric Psychiatric exam: Present: normal affect, normal mood - Skin Skin exam: Present: warm, dry, intact ED Course Vital Signs 04/04/21 04/04/21 15:17 18:00 Temperature 98.9 F 98.2 F Pulse Rate 96 H 80 Respiratory 18 16 Rate Blood Pressure 128/80 118/77 [Right] O2 Sat by Pulse 98 100 Oximetry ED Medical Decision Making - Medical Decision Making Patient is a 30-year-old female presents emergency with complaints of "flulike symptoms" that began last night. She has associated generalized body aches, chills, fever, rhinorrhea, congestion, dry cough, diarrhea, ear pressure. She denies any sore throat, shortness of breath, chest pain, abdominal pain. She denies any known sick contacts or recent travel. She has not been vaccinated for COVID-19. No past medical history. No allergies to medications. Vitals are normal. Normal oropharynx, normal TMs and canals, breath sounds are clear bilaterally. Rapid flu is negative. Patient given medication with improvement in body aches. Symptoms likely related to URI. Discussed the possibility of COVID-19 with patient, discussed outpatient testing, discussed self quarantine for 10 days if positive, discussed supportive care and symptomatic treatment with patient and the importance of oral hydration. Advised patient Please take medication as prescribed as needed. Increase your fluid intake over the next couple days. Follow-up with a primary care doctor. Return to emergency room for any new or worsening symptoms. Recommend outpatient COVID-19 testing and if positive will need to self quarantine for 10 days from onset of symptoms. Critical care attestation.: If time is entered above; I have spent that time in minutes in the direct care of this critically ill patient, excluding procedure time. ED Disposition Clinical Impression: URI (upper respiratory infection) Qualifiers: URI type: unspecified URI Qualified Code(s): J06.9 - Acute upper respiratory infection, unspecified Disposition: 01 HOME / SELF CARE / HOMELESS Is pt being admited?: No Does the pt Need Aspirin: No Condition: Stable Instructions: Viral Respiratory Infection Additional Instructions: Please take medication as prescribed as needed. Increase your fluid intake over the next couple days. Follow-up with a primary care doctor. Return to emergency room for any new or worsening symptoms. Recommend outpatient COVID-19 testing and if positive will need to self quarantine for 10 days from onset of symptoms. Prescriptions: guaiFENesin ER [Mucinex ER] 600 mg PO Q12H #14 tablet.er Benzonatate [Tessalon Perles] 100 mg PO Q8HR PRN #10 capsule PRN Reason: cough Acetaminophen [Tylenol] 650 mg PO Q8HR PRN #20 capsule PRN Reason: pain Referrals: OLEGARIO BOLTON MD [Staff Physician] - 3-5 Days [facility] [Provider Group] - 3-5 Days Time of Disposition: 17:13 Print Language: DIVEHI
[2021-04-04 18:03] VITALS: BP 118/77
== END 2021-04-04 18:04 | disposition home or self-care (01) ==
LOC: ED 15:13
DX: J06.9 Acute upper respiratory infection, unspecified (principal); I10 Essential (primary) hypertension; F17.200 Nicotine dependence, unspecified, uncomplicated
CPT/HCPCS: 87400; 99283